=== PATIENT | male | born 1975 | race African-American/Black ===

== ENCOUNTER 2019-03-16 22:01 | Emergency (ER) | payer BC, OTHER ==
[2019-03-16 22:07] VITALS: BP 133/96; PULSE 72; TEMP 98; BMI 29.2
[2019-03-16] MEDS ORDERED: IBUPROFEN 400 MG TABLET (FP) PO ONE (23:38)
--- NOTE | 2019-03-17 00:34 | PDOC ---
History of Present Illness - General Chief Complaint: Injury Stated Complaint: LFT LEG INJURY Time Seen by Provider: 03/16/19 23:27 History Source: Patient Exam Limitations: No Limitations Past History - Past Medical History Allergies/Adverse Reactions: Allergies Allergy/AdvReac Type Severity Reaction Status Date / Time No Known Allergies Allergy Verified 03/16/19 22:06 COPD: No - Suicide/Smoking/Psychosocial Hx Smoking History: Unknown if ever smoked Have you smoked in the past 12 months: No Information on smoking cessation initiated: No Hx Alcohol Use: No Drug/Substance Use Hx: No *Physical Exam - Vital Signs Last Vital Signs Temp Pulse Resp BP Pulse Ox 98.0 F 72 16 133/96 100 03/16/19 22:04 03/16/19 22:04 03/16/19 22:04 03/16/19 22:04 03/16/19 22:04 - Physical Exam General Appearance: No: Apparent Distress Respiratory/Chest: positive: Lungs Clear, Normal Breath Sounds. negative: Respiratory Distress Cardiovascular: positive: Regular Rhythm, Regular Rate, S1, S2. 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 States he was running with the ball and suddenly heard a pop. Denies falling, knee pain, numbness. PE confirms LLE achilles tendon rupture LLE placed in short leg posterior splint and given crutches, Brittanie Will refer to ortho 03/17/19 00:31 *DC/Admit/Observation/Transfer Diagnosis at time of Disposition: Achilles tendon rupture Qualifiers: Encounter type: initial encounter Laterality: left Qualified Code(s): S86.012A - Strain of left Achilles tendon, initial encounter - Discharge Dispostion Disposition: HOME Condition at time of disposition: Stable Decision to Admit order: No - Referrals Referrals: Terrence Valadez MD [Primary Care Provider] - Steve Childs DO [Staff Physician] - Call tomorrow - Patient Instructions Printed Discharge Instructions: DI for Achilles Tendon Rupture, How to Use Crutches Additional Instructions: Thank you for choosing [facility]. It was a pleasure taking care of you. You may take Motrin 600 mg every 6 hours by mouth as needed for mild to moderate pain. Take Motrin with food. You likely have Achilles tendon rupture for which you were placed in a splint Do not put weight on the left leg Please follow-up in the orthopedic clinic Return to the Emergency Department for any concerning symptoms. - Post Discharge Activity
[2019-03-17] MEDS ORDERED: IBUPROFEN 600 MG TABLET (FP) PO ONE (00:38)
== END 2019-03-17 01:00 | disposition home or self-care (01) ==
LOC: JER 22:01
PROC: 2W3RX1Z Immobilization of Left Lower Leg using Splint (ICD-10-PCS; principal; 2019-03-16)
DX: S86.012A Strain of left Achilles tendon, initial encounter (principal); X58.XXXA Exposure to other specified factors, initial encounter; Y93.02 Activity, running; Y92.9 Unspecified place or not applicable
CPT/HCPCS: 99283-25